=== PATIENT | male | born 1990 | race Caucasian/White ===

== ENCOUNTER 2017-09-04 15:10 | Emergency (ER) | payer SELFPAY ==
[~2017-09-04] VITALS: Ht 167.6 cm; Wt 77.0 kg
[2017-09-05] MEDS ORDERED: IBUPROFEN 600MG TABLET PO ONE
[2017-09-05 00:35] VITALS: BP 125/88
== END 2017-09-05 00:42 | disposition home or self-care (01) ==
LOC: ER 16:52
DX: S39.82XA Other specified injuries of lower back, initial encounter (principal); Z88.0 Allergy status to penicillin; W01.0XXA Fall on same level from slipping, tripping and stumbling without subsequent striking against object, initial encounter; Y93.89 Activity, other specified; Y92.89 Other specified places as the place of occurrence of the external cause; Y99.8 Other external cause status
CPT/HCPCS: 72100; 99284

== ENCOUNTER 2020-04-03 10:41 | Emergency (ER) | payer MEDICAID ==
[~2020-04-03] VITALS: Ht 160 cm; Wt 82.0 kg
[2020-04-03 10:49] VITALS: BP 125/73
[2020-04-03] MEDS ORDERED: IBUPROFEN 600MG TABLET PO ONE (11:15)
== END 2020-04-03 12:10 | disposition home or self-care (01) ==
LOC: ER 11:50
DX: S90.31XA Contusion of right foot, initial encounter (principal); W20.8XXA Other cause of strike by thrown, projected or falling object, initial encounter; Y93.89 Activity, other specified; Y92.89 Other specified places as the place of occurrence of the external cause
CPT/HCPCS: 73630; 99283